=== PATIENT | female | born 1970 | race Caucasian/White ===

== ENCOUNTER 2016-11-11 08:28 | Day surgery (SDC) | payer BC ==
[2016-11-07 10:44] VITALS: BMI 31.0
[2016-11-11] MEDS ORDERED: SUCCINYLCHOLINE CHLORIDE 200 MG/10 ML VIAL ONE (09:16)
[2016-11-11] MEDS ORDERED: MIDAZOLAM HCL 2 MG/2 ML SINGLE DOSE VIAL ONE (09:17)
[2016-11-11] MEDS ORDERED: LIDOCAINE 1%/EPI 1:100000 (50 ML MULTI DOSE VIAL) ONE (10:05)
[2016-11-11] MEDS ORDERED: MICROFIBRILLAR COLLAGEN 1 GM EACH ONE (10:05)
[2016-11-11] MEDS ORDERED: BUPIVACAINE HCL/PF 0.5% (5MG/ML) 10 ML VIAL ONE ×2 (10:05→10:06)
[2016-11-11] MEDS ORDERED: DEXAMETHASONE SOD PHOSPHATE 4 MG/1 ML VIAL ONE (10:43)
[2016-11-11] MEDS ORDERED: CLINDAMYCIN PHOSPHATE 600 MG/4 ML VIAL ONE (10:48)
[2016-11-11] MEDS ORDERED: CLINDAMYCIN PHOSPHATE 600 MG/4 ML VIAL IVPB ONE (10:50)
[2016-11-11] MEDS ORDERED: HYDROmorphone HCL/PF 1 MG/ML VIAL (FOR PYXIS CHARGING ONLY) ONE (11:36)
[2016-11-11] MEDS ORDERED: LIDOCAINE HCL 1%, 10 MG/ML (50 mL VIAL) IJ ONE (11:46)
[2016-11-11] MEDS ORDERED: MICROFIBRILLAR COLLAGEN 1 GM EACH TP ONE (11:47)
[2016-11-11] MEDS ORDERED: BUPIVACAINE HCL/PF (5 MG/ML) 30 ML VIAL IJ ONE (11:47)
[2016-11-11] MEDS ORDERED: PROMETHAZINE HCL 25 MG/1 ML VIAL IVPUSH PRN (12:43)
[2016-11-11] MEDS ORDERED: oxyCODONE HCL 5 MG TABLET PO PRN (12:43)
[2016-11-11] MEDS ORDERED: LACTATED RINGERS SOLUTION 1,000 ML IV SCH ×2 (12:45)
--- NOTE | 2016-11-11 13:28 | OP ---
DATE OF OPERATION: 11/11/2016 SURGICAL ATTENDING: Fadia Bernardo MD BORE MINER OPERATOR: TAMIA Melo PREOPERATIVE DIAGNOSIS: Hyperthyroidism. POSTOPERATIVE DIAGNOSIS: Hyperthyroidism. ANESTHESIA: General endotracheal. PROCEDURE: 1. Total thyroidectomy. 2. Parathyroid reimplantation. 3. Neck ultrasound. DESCRIPTION OF PROCEDURE: The patient was taken into the operating room and placed in a supine position. Endotracheally intubated. Neck ultrasound was performed showing 2 normal-sized thyroid lobes with no nodules and no adenopathy. The neck was then prepped and draped in the usual sterile fashion. Local anesthesia was administered, and a 4.5-cm incision was made in a mid neck skin crease. This was carried down through subcutaneous tissues and platysma. Subplatysmal flaps were raised superiorly and inferiorly, and flap hooks were placed for exposure. The median raphae was incised, and the strap muscles were elevated bilaterally. Dissection began on the right side where the recurrent laryngeal nerve was identified, dissected, and preserved. The superior laryngeal nerve and parathyroid glands were preserved. The superior, inferior, and posterior attachments were transected. The isthmus was transected, and in this way the right thyroid lobe was removed. It was inspected for parathyroid tissue, and none was found. It was then handed off the field for pathological evaluation. The left recurrent laryngeal nerve was then identified, dissected, and preserved. The left superior laryngeal nerve and left superior parathyroid gland were preserved intact. The left inferior parathyroid gland could not be preserved intact and, therefore, was removed for reimplantation. The superior, posterior, and inferior attachments were transected, and in this way the left thyroid lobe was removed and sent to Pathology for evaluation. Hemostasis was achieved with electrocautery and Avitene. Nerve monitoring was used throughout, and both recurrent laryngeal nerves remain intact throughout the entire procedure including at the conclusion. The median raphae was then closed. The right sternoclavicular muscle was exposed, and 2 pockets were made for reimplantation of the parathyroid tissue, which was marked by a 5-0 Prolene suture. The platysmal layer was closed with a Vicryl and the skin with a Biosyn. Sterile dressings were placed. The patient was then extubated, awakened, and taken to recovery in stable condition. Dr. Bernardo, the attending surgeon, was present throughout the entire procedure. FADIA BERNARDO M.D. [id number]
[2016-11-11 14:27] VITALS: TEMP 97.8
[2016-11-11] MEDS ORDERED: oxyCODONE HCL 5 MG TABLET ONE (15:27)
[2016-11-11 16:09] VITALS: BP 134/68; PULSE 71
--- NOTE | 2016-11-11 16:22 | OP ---
Operative Note - Note: Operative Date: 11/11/16 Pre-Operative Diagnosis: Hyperthyroidism Operation: Total thyroidectomy, parathyroid reimplantation Post-Operative Diagnosis: Same as Pre-op Surgeon: Damir Chand Silica Dry Press Helper: Venessa Loyd Anesthesiologist/POSTULANT: Tae Pollack Anesthesia: General Specimens Removed: right thyroid lobe, left thyroid lobe Estimated Blood Loss (mls): 10 Fluid Volume Replaced (mls): 1,000 Operative Report Dictated: Yes
--- NOTE | 2016-11-11 16:25 | SURG ---
Surgery Remote Control Mirror Installer Note Remote Control Mirror Installer: Venessa Loyd PA-C Date of Service: 11/11/16 Diagnosis: Hyperthyroidism Procedure: Total thyroidectomy, parathyroid reimplantation I was present for the entirety of the operative procedure. For further detail, please refer to operative report. Visit type - Case Type Case Type: Scheduled Admission
[2016-11-12] MEDS ORDERED: CALCIUM CARBONATE 650 MG TABLET PO SCH (10:00)
[2016-11-12] MEDS ORDERED: CALCITRIOL 0.25 MCG CAPSULE (FP) PO SCH (10:00)
--- NOTE | 2016-11-13 08:12 | PATH ---
Surgical Pathology Report Patient Name: ZEE ROSALES [facility]. Rec. #: [id number] /Age/Gender: 1970 (Age: 46) / F Account: [id number] Location: [facility], [place] SURGICAL Taken: 11/11/2016 Received: 11/11/2016 Reported: 11/13/2016 Physicians: Damir Chand M.D. Specimen(s) Received A: RIGHT THYROID LOBE B: LEFT THYROID LOBE Clinical History Hyperthyroidism Final Diagnosis A. THYROID GLAND, RIGHT LOBE, TOTAL THYROIDECTOMY: BENIGN THYROID TISSUE WITH LYMPHOCYTIC THYROIDITIS (SEE COMMENT). BACKGROUND MULTINODULAR HYPERPLASIA. B. THYROID GLAND, LEFT LOBE, TOTAL THYROIDECTOMY: BENIGN THYROID TISSUE WITH LYMPHOCYTIC THYROIDITIS (SEE COMMENT). BACKGROUND MULTINODULAR HYPERPLASIA. ONE PARATHYROID GLAND IDENTIFIED. 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 History of hyperthyroidism is noted. Serological correlations are suggested to render the diagnosis of Corby's thyroiditis as opposed to other types of lymphocytic thyroiditis. Electronically Signed Shay Mcgrath M.D. Gross Description A. Received in formalin labeled "right thyroid lobe" is a 10 g, 3.8 x 2.7 x 1.6 cm irregular, unoriented thyroid lobe. The outer surface is felix-red and intact. Sectioning reveals a 1.1 x 1.0 x 0.5 cm firm, felix-white fibrotic area. The remaining thyroid parenchyma displays multifocal colloid nodules and red-brown and beefy. The specimen is inked red, serially sectioned and entirely and sequentially submitted in 8 cassettes (lesion in cassettes 1-3). B. Received in formalin labeled "left thyroid lobe" is a 14 g, 5.1 x 2.6 x 1.7 cm irregular, unoriented thyroid lobe. The outer surface is felix-red and intact. Sectioning reveals a 1.0 x 0.9 x 0.6 cm firm, felix-white fibrotic area. The remaining thyroid parenchyma is red-brown and beefy. Steep Tender sections are sequentially submitted in 9 cassettes (lesion in cassettes 2-4). DL/11/11/2016 saudi11/11/2016
== END 2016-11-11 16:20 | disposition home or self-care (01) ==
LOC: JASU-SURG 08:28
PROVIDERS: ATTEND Surgery
PROC: 0GSP0ZZ Reposition Left Inferior Parathyroid Gland, Open Approach (ICD-10-PCS; 2016-11-11)
PROC: 0GTK0ZZ Resection of Thyroid Gland, Open Approach (ICD-10-PCS; principal; 2016-11-11 10:00)
DX: E05.90 Thyrotoxicosis, unspecified without thyrotoxic crisis or storm (principal)
CPT/HCPCS: 88307-TC; 94760